=== PATIENT | male | born 1950 | race Asian ===

== ENCOUNTER → 2021-01-25 | Outpatient (CLI) | payer MEDICARE, OTHER | END | disposition home or self-care (01) | LOC: RADMN 15:10 | PROVIDERS: ATTEND Internal Medicine | DX: J84.89 Other specified interstitial pulmonary diseases (principal); R91.8 Other nonspecific abnormal finding of lung field | CPT/HCPCS: 71046 ==

== ENCOUNTER → 2021-05-01 | Outpatient (CLI) | payer MEDICARE, OTHER | END | disposition home or self-care (01) | LOC: RADMN 08:18 | PROVIDERS: ATTEND Physical Medicine & Rehabilitation Spinal Cord Injury Medicine | DX: M47.27 Other spondylosis with radiculopathy, lumbosacral region (principal); M48.061 Spinal stenosis, lumbar region without neurogenic claudication; R29.890 Loss of height; M47.22 Other spondylosis with radiculopathy, cervical region; M48.02 Spinal stenosis, cervical region; E04.1 Nontoxic single thyroid nodule | CPT/HCPCS: 72141; 72148 ==

== ENCOUNTER → 2021-05-07 | Outpatient (CLI) | payer MEDICARE, OTHER | END | disposition home or self-care (01) | LOC: RADMN 08:23 | PROVIDERS: ATTEND Physical Medicine & Rehabilitation Spinal Cord Injury Medicine | DX: M94.262 Chondromalacia, left knee (principal); M25.462 Effusion, left knee; M23.611 Other spontaneous disruption of anterior cruciate ligament of right knee; M75.101 Unspecified rotator cuff tear or rupture of right shoulder, not specified as traumatic; M75.51 Bursitis of right shoulder; M19.011 Primary osteoarthritis, right shoulder | CPT/HCPCS: 73221; 73721 ==

== ENCOUNTER → 2022-10-10 | Outpatient (CLI) | payer MEDICARE, OTHER | END | disposition home or self-care (01) | LOC: RADMN 09:19 | PROVIDERS: ATTEND Physical Medicine & Rehabilitation Spinal Cord Injury Medicine | DX: M47.22 Other spondylosis with radiculopathy, cervical region (principal); M48.02 Spinal stenosis, cervical region; M25.78 Osteophyte, vertebrae; J32.9 Chronic sinusitis, unspecified; G93.89 Other specified disorders of brain | CPT/HCPCS: 70551; 72141 ==

== ENCOUNTER → 2023-02-25 | Outpatient (CLI) | payer MEDICARE, OTHER | END | disposition home or self-care (01) | LOC: RADMN 11:08 | PROVIDERS: ATTEND Internal Medicine | DX: M19.072 Primary osteoarthritis, left ankle and foot (principal); M19.071 Primary osteoarthritis, right ankle and foot; M77.32 Calcaneal spur, left foot; M77.31 Calcaneal spur, right foot; M47.814 Spondylosis without myelopathy or radiculopathy, thoracic region; R91.8 Other nonspecific abnormal finding of lung field | CPT/HCPCS: 71046 ==

== ENCOUNTER → 2023-10-07 | Outpatient (CLI) | payer MEDICARE, OTHER | END | disposition home or self-care (01) | LOC: RADMN 08:51 | PROVIDERS: ATTEND Physical Medicine & Rehabilitation Spinal Cord Injury Medicine | DX: M17.0 Bilateral primary osteoarthritis of knee (principal); M22.42 Chondromalacia patellae, left knee | CPT/HCPCS: 73721 ==